=== PATIENT | male | born 1990 | race Caucasian/White ===

== ENCOUNTER 2022-09-07 15:37 | Emergency (ER) | payer BC ==
[2022-09-07 15:51] VITALS: BP 117/71; PULSE 72; RESP 16; TEMP 98.5; BMI 24.7
[2022-09-07 16:11] LABS: HEMATOCRIT 43.5 % (35.4-49); HEMOGLOBIN 14.6 G/dL (11.7-16.9); MCH 31.3 pg (25.7-33.7); MCHC 33.7 g/dl (32.0-35.9); MEAN CELL VOLUME 92.9 fl (80-96); MEAN PLT VOLUME 9.7 fl (7.5-11.1); PLATELET COUNT 195.7 10^3/uL (134-434); RBC 4.68 10^6/uL (4.00-5.60); RDW 13.7 % (11.9-15.9); WHITE BLOOD COUNT 5.3 10^3/uL (4.0-10.8)
[2022-09-07 16:23] LABS: BLOOD UREA NITROGEN 18.7 mg/dl (7-18); CALCIUM 9.1 mg/dl (8.5-10.1); CREATININE 1.2 mg/dl (0.6-1.3); POTASSIUM 4.2 mmol/L (3.5-5.1)
== END 2022-09-07 17:16 | disposition home or self-care (01) ==
LOC: FER 15:37
DX: R07.89 Other chest pain (principal); T50.905A Adverse effect of unspecified drugs, medicaments and biological substances, initial encounter
CPT/HCPCS: 36415; 71046-TC-FY; 80048; 84484; 85027; 93005; 99285-25

== ENCOUNTER 2022-10-08 12:51 | Emergency (ER) | payer BC ==
[2022-10-08 12:57] VITALS: BP 137/83; PULSE 84; RESP 20; TEMP 98.4; BMI 24.0
[2022-10-08] MEDS ORDERED: ALBUTEROL SO4 2.5/IPRATROPIUM 0.5 INH SOL 3 ML VIAL.NEB. NEB ONE ×2 (12:57)
[2022-10-08] MEDS ORDERED: DEXAMETHASONE 4 MG TABLET (FP) PO ONE (13:00)
[2022-10-08] MEDS ORDERED: DEXAMETHASONE 4 MG TABLET (FP) ONE (13:10)
== END 2022-10-08 13:50 | disposition home or self-care (01) ==
LOC: FER 12:51
PROC: 3E0F7GC Introduction of Other Therapeutic Substance into Respiratory Tract, Via Natural or Artificial Opening (ICD-10-PCS; principal; 2022-10-08)
DX: J45.909 Unspecified asthma, uncomplicated (principal); R06.02 Shortness of breath
CPT/HCPCS: 99283-25

== ENCOUNTER 2023-07-07 15:16 | Emergency (ER) | payer BC ==
[2023-07-07 15:39] VITALS: BP 117/61; PULSE 78; RESP 20; TEMP 97.6; BMI 27.0
[2023-07-07] MEDS ORDERED: IBUPROFEN 600 MG TABLET (FP) PO ONE (17:04)
[2023-07-07] MEDS: IBUPROFEN 600 MG TABLET (FP) PO ONE (17:06)
== END 2023-07-07 18:42 | disposition home or self-care (01) ==
LOC: FER 15:16
DX: N50.812 Left testicular pain (principal); N50.82 Scrotal pain
CPT/HCPCS: 36415; 76870-TC; 81003; 87086; 87491; 87591; 99284-25